=== PATIENT | female | born 1970 | race Caucasian/White ===

== ENCOUNTER 2016-04-14 12:07 | Emergency (ER) | payer MEDICAID ==
[2016-04-14] MEDS ORDERED: IBUPROFEN 600 MG TABLET PO ONE (12:21)
--- NOTE | 2016-04-14 12:21 | ER Document Report ---
ED Medical Screen (RME) - General Stated Complaint: VAGINAL PROBLEMS Time seen by provider: 12:19 Mode of Arrival: Ambulatory Information source: Patient Notes: 46-year-old female presents to ED for sore vaginal bumps. States her boyfriend was just diagnosed with genital wart she had a hysterectomy. I have greeted and performed a rapid initial assessment of this patient. A comprehensive ED assessment and evaluation of the patient, analysis of test results and completion of medical decision making process will be conducted by an additional ED providers. TRAVEL OUTSIDE OF THE [place] IN LAST 30 DAYS: No - Related Data Allergies/Adverse Reactions: tramadol [Tramadol] Allergy (Verified 03/15/16 09:45) Past Medical History - Past Medical History Cardiac Medical History: Denies: Hx Coronary Artery Disease, Hx Heart Attack, Hx Hypertension Pulmonary Medical History: Reports: Hx Pneumonia Denies: Hx Asthma, Hx Bronchitis, Hx COPD Neurological Medical History: Denies: Hx Cerebrovascular Accident, Hx Seizures GI Medical History: Reports: Hx Gastroesophageal Reflux Disease - OFF MEDS SINCE 5 YEARS AGO, Hx Hiatal Hernia - DX SEVEN YEARS AGO. Denies: Hx Hepatitis , Hx Ulcer Musculoskeltal Medical History: Denies Hx Arthritis Psychiatric Medical History: Reports: Hx Anxiety - DX 2007, Hx Bipolar Disorder - DX IN 2007, Hx Depression - Anxiety Infectious Medical History: Denies: Hx Hepatitis Past Surgical History: Reports: Hx Abdominal Surgery, Hx Breast Surgery - reconstruction bilat, Hx Oral Surgery - 2012, Hx Tonsillectomy - 2012. Denies: Hx Adenoidectomy, Hx Hysterectomy, Hx Mastectomy, Hx Open Heart Surgery, Hx Pacemaker - Immunizations Immunizations up to date: Yes Hx Diphtheria, Pertussis, Tetanus Vaccination: Yes
[2016-04-14 12:44] LABS: APPEARANCE,URINE CLEAR; BILIRUBIN,URINE NEGATIVE (NEGATIVE); GLUCOSE, URINE NEGATIVE (NEGATIVE); KETONES,URINE NEGATIVE (NEGATIVE); LEUKOCYTE ESTERASE,URINE NEGATIVE (NEGATIVE); NITRITE,URINE NEGATIVE (NEGATIVE); PROTEIN,URINE NEGATIVE (NEGATIVE); URINE SPECIFIC GRAVITY 1.004; UROBILINOGEN,URINE NEGATIVE mg/dL (<2.0)
--- NOTE | 2016-04-14 13:57 | ER Document Report ---
ED General - General Chief Complaint: STD Exposure Stated Complaint: VAGINAL PROBLEMS Time seen by provider: 13:53 Mode of Arrival: Ambulatory Notes: This is a 46-year-old female with a history of the bipolar that presents today with a one-week history of bumps on the labia. Patient states that yesterday her boyfriend told her that he has been diagnosed with genital warts approximately 20 years ago, and currently is in a flare. Patient describes the bumps as white nonerythematous without itch. The patient has had unprotected sex with her partner on multiple occasions. Denies nausea vomiting fever or chills. TRAVEL OUTSIDE OF THE [place] IN LAST 30 DAYS: No - Related Data Allergies/Adverse Reactions: tramadol [Tramadol] Allergy (Verified 04/14/16 12:20) Past Medical History - General Information source: Patient - Social History Smoking Status: Never Smoker Chew tobacco use (# tins/day): No Frequency of alcohol use: Rare Drug Abuse: None Family History: DM, Hyperlipidemia, Hypertension, Thyroid Disfunction Patient has suicidal ideation: No Patient has homicidal ideation: No - Past Medical History Cardiac Medical History: Denies: Hx Coronary Artery Disease, Hx Heart Attack, Hx Hypertension Pulmonary Medical History: Reports: Hx Pneumonia Denies: Hx Asthma, Hx Bronchitis, Hx COPD Neurological Medical History: Denies: Hx Cerebrovascular Accident, Hx Seizures Renal/ Medical History: Denies: Hx Peritoneal Dialysis GI Medical History: Reports: Hx Gastroesophageal Reflux Disease - OFF MEDS SINCE 5 YEARS AGO, Hx Hiatal Hernia - DX SEVEN YEARS AGO. Denies: Hx Hepatitis , Hx Ulcer Musculoskeltal Medical History: Denies Hx Arthritis Psychiatric Medical History: Reports: Hx Anxiety - DX 2007, Hx Bipolar Disorder - DX IN 2007, Hx Depression - Anxiety Infectious Medical History: Denies: Hx Hepatitis Past Surgical History: Reports: Hx Abdominal Surgery, Hx Breast Surgery - reconstruction bilat, Hx Oral Surgery - 2012, Hx Tonsillectomy - 2012. Denies: Hx Adenoidectomy, Hx Hysterectomy, Hx Mastectomy, Hx Open Heart Surgery, Hx Pacemaker - Immunizations Immunizations up to date: Yes Hx Diphtheria, Pertussis, Tetanus Vaccination: Yes Review of Systems - Review of Systems Constitutional: denies: Chills, Fever EENT: No symptoms reported Cardiovascular: No symptoms reported Respiratory: No symptoms reported Gastrointestinal: No symptoms reported Genitourinary: See HPI Female Genitourinary: No symptoms reported Musculoskeletal: No symptoms reported Skin: See HPI Hematologic/Lymphatic: No symptoms reported Neurological/Psychological: No symptoms reported Physical Exam - Vital signs Vitals: Temp Pulse Resp BP Pulse Ox 98.2 F 64 16 124/64 100 04/14/16 12:17 04/14/16 12:17 04/14/16 12:17 04/14/16 12:17 04/14/16 12:17 - General General appearance: Appears well, Alert - HEENT Head: Normocephalic, Atraumatic Eyes: Normal Conjunctiva: Normal - Respiratory Respiratory status: No respiratory distress Breath sounds: Normal. No: Rales, Rhonchi, Stridor, Wheezing - Cardiovascular Rhythm: Regular Heart sounds: Normal auscultation - Genitourinary External exam: Lesions - 1 on the left labia majora measuring 1/4 centimeter and 1/4 white lesion on right labia majora. Not erythematous. Lesion is not raised. Speculum exam: No: Vaginal discharge Vaginal bleeding: None Bimanuel exam: Normal - Back Back: Normal, Nontender - Extremities General upper extremity: Normal inspection, Normal ROM General lower extremity: Normal inspection, Normal ROM - Neurological Cognition: Normal. No: Confused - Psychological Associated symptoms: Normal affect, Normal mood - Skin Skin Temperature: Warm Skin Moisture: Dry Skin Color: Normal Course - Re-evaluation Re-evalutation: 04/14/16 14:38 Pelvic examination was chaperoned by nurse RN. Patient was given multiple opportunities to ask questions. She was advised to follow-up with primary care physician. Laboratory findings was shared with the patient. - Vital Signs Vital signs: Temp Pulse Resp BP Pulse Ox 98.9 F 58 L 16 145/88 H 97 04/14/16 14:54 04/14/16 14:54 04/14/16 14:54 04/14/16 14:54 04/14/16 14:54 Discharge - Discharge Clinical Impression: Vaginal discomfort Condition: Good Disposition: HOME, SELF-CARE Additional Instructions: Return to the emergency department if symptoms worsen. Follow-up with primary care physician as soon as possible. Referrals: [facility] [Provider Group] - Follow up as needed [facility] [Provider Group] - Follow up as needed
[2016-04-14 14:08] LABS: CHLAM PCR NOT DETECTED (NOT DETECT)
[2016-04-14 15:10] VITALS: BP 113/68
== END 2016-04-14 15:10 | disposition home or self-care (01) ==
LOC: ER 12:07
DX: L98.9 Disorder of the skin and subcutaneous tissue, unspecified (principal); Z20.2 Contact with and (suspected) exposure to infections with a predominantly sexual mode of transmission; Z88.5 Allergy status to narcotic agent
CPT/HCPCS: 99283; 81001; 87250; 87491; 87591; J3490

== ENCOUNTER 2017-12-25 12:50 | Emergency (ER) | payer MEDICAID, OTHER ==
[2017-12-25] MEDS ORDERED: METHYLPREDNISOLONE INJ 125 MG/2 ML SDV IM ONE (13:37)
--- NOTE | 2017-12-25 13:43 | ER Document Report ---
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 Patient states that she did have a rash develop after she was exposed years ago to mold. Patient states that she has a burning sensation associated without any abscess or purulent discharge. She is eating and drinking without any difficulties. She is urinating normally and having normal bowel movements. Denies any other travel, new foods, soaps, detergents, or known insect bites. Denies IV drug use. No recent illness. Denies any headache, fever, head injury, neck pain, changes in vision/speech/mentation/ hearing, URI, sore throat, chest pain, palpitations, syncope, cough, shortness of breath, wheeze, dyspnea, abdominal pain, nausea/vomiting/diarrhea, urinary retention, dysuria, hematuria. - ROS Systems Reviewed and Negative: Yes All other systems reviewed and negative - REPRODUCTIVE Reproductive: DENIES: : Past Medical History - Social History Smoking Status: Current Every Day Smoker Chew tobacco use (# tins/day): No Frequency of alcohol use: None Drug Abuse: None Family History: DM, Hyperlipidemia, Hypertension, Thyroid Disfunction Patient has suicidal ideation: No Patient has homicidal ideation: No - Past Medical History Cardiac Medical History: Denies: Hx Coronary Artery Disease, Hx Heart Attack, Hx Hypertension Pulmonary Medical History: Reports: Hx Pneumonia Denies: Hx Asthma, Hx Bronchitis, Hx COPD Neurological Medical History: Denies: Hx Cerebrovascular Accident, Hx Seizures Renal/ Medical History: Denies: Hx Peritoneal Dialysis GI Medical History: Reports: Hx Gastroesophageal Reflux Disease - OFF MEDS SINCE 5 YEARS AGO, Hx Hiatal Hernia - DX SEVEN YEARS AGO. Denies: Hx Hepatitis , Hx Ulcer Musculoskeletal Medical History: Denies Hx Arthritis Psychiatric Medical History: Reports: Hx Anxiety - DX 2007, Hx Bipolar Disorder - DX IN 2007, Hx Depression - Anxiety Infectious Medical History: Denies: Hx Hepatitis Past Surgical History: Reports: Hx Abdominal Surgery, Hx Breast Surgery - reconstruction bilat, Hx Hysterectomy, Hx Oral Surgery - 2012, Hx Tonsillectomy - 2012. Denies: Hx Adenoidectomy, Hx Mastectomy, Hx Open Heart Surgery, Hx Pacemaker - Immunizations Immunizations up to date: Yes Hx Diphtheria, Pertussis, Tetanus Vaccination: Yes Vertical Provider Document - CONSTITUTIONAL Agree With Documented VS: Yes Notes: PHYSICAL EXAMINATION: GENERAL: Well-appearing, well-nourished and in no acute distress. A&Ox4. Answers questions appropriately. Moves comfortably w/o notable distress HEAD: Atraumatic, normocephalic. EYES: Pupils equal round and reactive to light, extraocular movements intact, sclera anicteric, conjunctiva are normal. ENT: EAC clear b/l. TM's intact b/l without erythema, fluid, or perforation. Nares patent and with clear discharge. oropharynx no erythema without exudates. No tonsilar hypertrophy without erythema or exudate. No palatine shift. Uvula midline. No tongue protrusion. No drooling, hoarseness, or airway compromise. Moist mucous membranes. No sinus tenderness. NECK: Normal range of motion, supple without lymphadenopathy. No rigidity/ meningismus. LUNGS: Breath sounds clear to auscultation bilaterally and equal. No wheezes rales or rhonchi. No retractions HEART: Regular rate and rhythm without murmurs, rubs, gallops. ABDOMEN: Soft, nontender, nondistended abdomen. No guarding, no rebound. No masses appreciated. Normal bowel sounds present. No CVA tenderness bilaterally. NEUROLOGICAL: Normal speech, normal gait. Normal sensory, motor exams PSYCH: Normal mood, normal affect. SKIN: maculopapular rash to the neck, chest, ears, and on the face. No mucosal rash. No induration, abscess, streaks, or purulence. - INFECTION CONTROL TRAVEL OUTSIDE OF THE [place] IN LAST 30 DAYS: No Course - Re-evaluation Re-evalutation: 12/25/17 13:41 Patient is an afebrile, well-hydrated, 47-year-old female who presents to the ED with a nonspecific skin rash. Vitals are acceptable without significant tachycardia, tachypnea, or hypoxia. PE is otherwise unremarkable. Patient is nontoxic-appearing and is tolerating p.o. without any difficulties. No labs or imaging warranted at this time. Low suspicion for any sepsis, meningitis, severe dehydration, respiratory compromise, SJS, Kawasaki, or other systemic emergent condition at this time. Patient is aware that condition can change from initial presentation and she needs to monitor symptoms closely and seek medical attention with any acute changes. Solu-Medrol given IM today. I will send her home with a steroid taper as well as triamcinolone. Recheck with your PCM in 2-3 days. Consider consult with dermatology. Return to the ED with any worsening/concerning symptoms otherwise as reviewed in discharge. Patient is in agreement. - Vital Signs Vital signs: Temp Pulse Resp BP Pulse Ox 99.0 F 99 18 143/98 H 98 12/25/17 12:54 12/25/17 12:54 12/25/17 12:54 12/25/17 12:54 12/25/17 12:54 Discharge - Discharge Clinical Impression: Rash and nonspecific skin eruption Condition: Stable Disposition: HOME, SELF-CARE Additional Instructions: Keep the skin clean Wash with mild soap and water Tylenol/ibuprofen if needed Triple antibiotic ointment daily for any break in the skin Take medication as directed Monitor for any worsening symptoms Recheck with your PCM in 2-3 days Consider consult with Dermatology for ongoing/worsening symptoms Return to the ED with any worsening symptoms and/or development of fever, headache, chest pain, palpitations, syncope, shortness of breath, trouble breathing, abdominal pain, n/v/d, abscess, purulent discharge, red streaks, worsening swelling, or other worsening symptoms that are concerning to you. Prescriptions: Prednisone 20 mg PO ASDIR #18 tablet Triamcinolone Acetonide [Aristocort 0.5% Cream 15 gm] 1 applic TP BID #1 tube Forms: Elevated Blood Pressure, Smoking Cessation Education Referrals: AFSHIN CRAWFORD DO [Primary Care Provider] - 12/27/17
[2017-12-25] MEDS ORDERED: OXYCODONE HCL IR 5 MG TABLET PO ONE (13:44)
[2017-12-25 14:04] VITALS: BP 138/84
== END 2017-12-25 14:04 | disposition home or self-care (01) ==
LOC: ER 12:50
DX: R21 Rash and other nonspecific skin eruption (principal); Q79.6 Ehlers-Danlos syndromes; F17.200 Nicotine dependence, unspecified, uncomplicated
CPT/HCPCS: 99282; 96372; J2930; J3490